=== PATIENT | female | born 1990 | race African-American/Black ===

== ENCOUNTER 2020-01-06 11:03 | Emergency (ER) | payer MEDICAID ==
[~2020-01-06] VITALS: Ht 170.2 cm; Wt 49.9 kg
[2020-01-06] MEDS ORDERED: AMPH30TA3 PO (11:20)
--- NOTE | 2020-01-06 11:35 | NUR ---
Discharge provided, discussed, and signed by pt with MD at bedside. Addendum: 01/06/20 at 1834 by DANNY Patient discharged to home in stable condition. Written and verbal after care instructions given. Patient verbalizes understanding of instructions. Stressed follow up or return to ER for worsening s/s.
== END 2020-01-06 11:35 | disposition home or self-care (01) ==
LOC: ER 11:03
DX: Z76.0 Encounter for issue of repeat prescription (principal); F90.9 Attention-deficit hyperactivity disorder, unspecified type; F43.10 Post-traumatic stress disorder, unspecified; V49.9XXS Car occupant (driver) (passenger) injured in unspecified traffic accident, sequela
CPT/HCPCS: A4663

== ENCOUNTER 2020-06-08 11:09 | Emergency (ER) | payer MEDICAID ==
[~2020-06-08] VITALS: Ht 170.2 cm; Wt 49.9 kg
[~2020-06-08 11:09] MED LIST: AMPH30TA3 PO
[2020-06-08] MEDS ORDERED: BUPR-319 PO (11:22)
[2020-06-08] MEDS ORDERED: ATOM40CA PO (11:22)
--- NOTE | 2020-06-08 11:30 | NUR ---
Gave pt RX and d/c instructions, pt verbalized understanding.
== END 2020-06-08 11:40 | disposition home or self-care (01) ==
LOC: ER 11:09
DX: Z76.0 Encounter for issue of repeat prescription (principal); F32.9 Major depressive disorder, single episode, unspecified; F90.9 Attention-deficit hyperactivity disorder, unspecified type
CPT/HCPCS: A4663